=== PATIENT | female | born 1990 | race Caucasian/White ===

== ENCOUNTER 2016-07-22 19:30 | Emergency (ER) | payer OTHER ==
[2016-07-22 19:46] VITALS: BP 116/69; PULSE 101; RESP 20; TEMP 97.8
--- NOTE | 2016-07-22 20:08 | ED ---
Skin/Abscess/FB HPI - General Chief complaint: Skin/Abscess/Foreign Body Stated complaint: Arm Pain Time Seen by Provider: 07/22/16 20:07 Source: patient, family, RN notes reviewed, old records reviewed Mode of arrival: ambulatory Limitations: no limitations - History of Present Illness Initial comments: Patient is a 25 year old female that reports that she has an abscess over her left antecubital area after IVDU. Patient reports she was using the same needle multiple times to inject heroin. She states that she noticed the abscess start to form 2 weeks ago, and it has slowly progressed. She states she was embarrassed to be seen, but the pain is unbearable. She hasnt injected heroin in this area since then. She denies any other areas of abscess. Patient denies fever or chills, chest pain, headache or shortness of breath. She has never had an abscess before. - Related Data Previous Rx's Medication Instructions Recorded Acetaminophen-Codeine 300-30mg 1 tab PO Q4H PRN #12 tablet 07/22/16 [Tylenol #3] Sulfamethox-Tmp 800-160Mg [Bactrim 2 tab PO Q12HR 14 Days 07/22/16 DS 800-160 mg] Allergies Allergy/AdvReac Type Severity Reaction Status Date / Time No Known Allergies Allergy Verified 07/22/16 19:46 Review of Systems ROS Statement: Those systems with pertinent positive or pertinent negative responses have been documented in the HPI. ROS Other: All systems not noted in ROS Statement are negative. Past Medical History Past Medical History: No Reported History History of Any Multi-Drug Resistant Organisms: None Reported Past Surgical History: No Surgical Hx Reported Past Anesthesia/Blood Transfusion Reactions: No Reported Reaction Past Psychological History: No Psychological Hx Reported Smoking Status: Current every day smoker Past Alcohol Use History: None Reported Past Drug Use History: Heroin - Past Family History Mother Family Medical History: No Reported History General Exam - General Exam Comments Initial Comments: Well appearing 25 year old female, no acute distress. Limitations: no limitations General appearance: alert, in no apparent distress Head exam: Present: atraumatic, normocephalic, normal inspection Eye exam: Present: normal appearance, PERRL, EOMI. Absent: scleral icterus, conjunctival injection, periorbital swelling ENT exam: Present: normal exam, mucous membranes moist, TM's normal bilaterally Neck exam: Present: normal inspection. Absent: tenderness, meningismus, lymphadenopathy Respiratory exam: Present: normal lung sounds bilaterally. Absent: respiratory distress, wheezes, rales, rhonchi, stridor Cardiovascular Exam: Present: regular rate, normal rhythm, normal heart sounds. Absent: systolic murmur, diastolic murmur, rubs, gallop, clicks GI/Abdominal exam: Present: soft, normal bowel sounds. Absent: distended, tenderness, guarding, rebound, rigid Extremities exam: Present: full ROM, normal capillary refill. Absent: normal inspection, tenderness, pedal edema, joint swelling, calf tenderness Left Upper Arm exam: Present: normal inspection, full ROM Elbow exam: Present: swelling (swelling and erythema over antecubital fossa. abscess measures 5cm by 4cm.), erythema. Absent: normal inspection, full ROM ( patient has limited flexion due to pain. ), tenderness, abrasion, laceration, ecchymosis, deformity, effusion, pain w/ pronation/supination Forearm Wrist exam: Present: normal inspection, full ROM Hand Wrist exam: Present: normal inspection, full ROM Neuro motor exam: Present: wrist extension intact, thumb opposition intact, thumb IP flexion intact, thumb adduction intact, fingers 2-5 abduction intact Neurosensory exam: Present: 2-point discrimination, radial nerve intact, ulnar nerve intact, median nerve intact Vascular: Present: normal capillary refill Back exam: Present: normal inspection, full ROM. Absent: tenderness, CVA tenderness (R), CVA tenderness (L), muscle spasm, paraspinal tenderness Neurological exam: Present: alert, oriented X3, CN II-XII intact. Absent: altered, normal gait, abnormal gait Psychiatric exam: Present: normal affect, normal mood Skin exam: Present: warm, dry, intact, normal color. Absent: rash Course Vital Signs 07/22/16 19:42 Temperature 97.8 F Pulse Rate 101 H Respiratory 20 Rate Blood Pressure 116/69 O2 Sat by Pulse 98 Oximetry Procedures - Incision & Drainage Consent Obtained: verbal consent Indication: left antecubital abscess from IVdU Site: upper extremity (left antecubital fossa) Size (cm): 5 Anesthetic Used: benzocaine 0.25% Amount (mLs): 5 I&D Cleaning Method: Iodine Sterile Field Used?: Yes Scalpel Used: #11 Irrigation Performed?: No I&D Drainage Obtained: Pus, Blood Packing: Iodoform Culture Obtained?: Yes Complications: pain Patient Tolerated Procedure: well, no complications Medical Decision Making - Medical Decision Making Patient is a 25 year old female with abscess in left antecubital fossa after IVDU. She reports the pain was there for approximately 2 weeks. She denies any other symptoms including fever or chills. Abscess was incised, drained and culture obtained. Over 20 cc of fluid and pus drained. PAtient will be placed on Bactrim DS 2 tablets BID for 14 days. PAtient abscess also packed and advised to remove packing in 2 days. Patient advised to return if area increases or any other alarming signs occuring like fever, chills, or increased size of redness. Patient understands treatment plan and will comply. I advised patient to discontinue IVDU and patient reports that she plans too. Given size of abscess and the pain, patient given Rx for tylenol 3. Disposition Clinical Impression: Abscess of left arm Disposition: HOME SELF-CARE Condition: Good Instructions: Abscess Incision and Drainage (ED) Additional Instructions: Remove packing in 2 days. Avoid use of IV drugs. Complete entire antibiotic prescription. Return to the [facility] if symptoms continue persist. Prescriptions: Acetaminophen-Codeine 300-30mg [Tylenol #3] 1 tab PO Q4H PRN #12 tablet PRN Reason: Pain Sulfamethox-Tmp 800-160Mg [Bactrim DS 800-160 mg] 2 tab PO Q12HR 14 Days Referrals: Haley Still MD [REFERRING] - 1-2 days
[2016-07-22] MEDS ORDERED: SULFAMETH-TMP DS STARTER PACK 2 TAB BTL PO STA (20:31)
[2016-07-22] MEDS ORDERED: ACET/COD 300 MG/30 MG STARTER PACK 6 TAB BTL PO STA (20:32)
== END 2016-07-22 21:21 | disposition home or self-care (01) ==
LOC: EC 19:30
DX: L02.414 Cutaneous abscess of left upper limb (principal); F17.200 Nicotine dependence, unspecified, uncomplicated
CPT/HCPCS: 10060; 87070; 87077; 87186; 87205; 99283

== ENCOUNTER 2018-06-23 20:52 | Emergency (ER) | payer OTHER ==
[2018-06-23] MEDS ORDERED: SODIUM CHLORIDE 0.9% 1,000 ML IV STA ×3 (21:00)
[2018-06-23] MEDS ORDERED: SODIUM CHLORIDE 0.9% 500 ML 500 ML IV STA (21:00)
--- NOTE | 2018-06-23 21:18 | ED ---
Altered Mental Status HPI - General Stated Complaint: shortness of breath Time Seen by Provider: 06/23/18 20:59 Source: patient, family, RN notes reviewed, old records reviewed Mode of arrival: wheelchair Limitations: altered mental status, physical limitation - History of Present Illness Initial Comments: 25 female the ER for evaluation, persistent altered mental status. Patient brought in by EMS, boyfriend, patient has no history of methamphetamine abuse as well as heroin abuse. Patient has had nausea vomiting and diarrhea 3 days as well as fever, has not eaten in over a week. Patient herself is poor historian this time, and we'll give history secondary severe clinical condition MD Complaint: altered mental status, confusion, decreased responsiveness, intoxication, weakness -: week(s) Severity: severe Consistency of Symptoms: getting worse Context: alcohol abuse, drug abuse, recent fever Associated Symptoms: fever/chills, malaise, nausea/vomiting, shortness of breath , weakness, diarrhea - Related Data Home Medications Medication Instructions Recorded Confirmed oxyCODONE HCL 30 mg PO BID 06/23/18 06/23/18 Allergies Allergy/AdvReac Type Severity Reaction Status Date / Time No Known Allergies Allergy Verified 06/23/18 21:17 Review of Systems ROS Statement: Those systems with pertinent positive or pertinent negative responses have been documented in the HPI. ROS Other: All systems not noted in ROS Statement are negative. Past Medical History Past Medical History: No Reported History History of Any Multi-Drug Resistant Organisms: MRSA Date of last positivie culture/infection: 07/22/16 MDRO Source:: Left Arm Past Surgical History: No Surgical Hx Reported Past Anesthesia/Blood Transfusion Reactions: No Reported Reaction Past Psychological History: No Psychological Hx Reported Smoking Status: Current every day smoker Past Alcohol Use History: None Reported Past Drug Use History: Heroin - Past Family History Mother Family Medical History: No Reported History General Exam Limitations: altered mental status, physical limitation General appearance: alert, appears intoxicated, anxious, lethargic, in distress Head exam: Present: atraumatic, normocephalic, normal inspection Eye exam: Present: normal appearance, PERRL, EOMI. Absent: scleral icterus, conjunctival injection, periorbital swelling ENT exam: Present: mucous membranes dry Neck exam: Present: normal inspection. Absent: tenderness, meningismus, lymphadenopathy Respiratory exam: Present: respiratory distress, wheezes, rhonchi, accessory muscle use, decreased breath sounds, prolonged expiratory. Absent: rales, stridor Cardiovascular Exam: Present: normal rhythm, tachycardia, normal heart sounds. Absent: systolic murmur, diastolic murmur, rubs, gallop, clicks GI/Abdominal exam: Present: soft, normal bowel sounds. Absent: distended, tenderness, guarding, rebound, rigid Extremities exam: Present: normal inspection, full ROM, normal capillary refill. Absent: tenderness, pedal edema, joint swelling, calf tenderness Back exam: Present: normal inspection Neurological exam: Present: altered, CN II-XII intact Psychiatric exam: Present: agitated, anxious Skin exam: Present: warm, dry, diaphoretic, pallor. Absent: rash Course Vital Signs 06/23/18 06/23/18 06/23/18 21:15 21:49 22:20 Temperature 100.6 F H Pulse Rate 134 H 112 H Respiratory 32 H 32 H Rate Blood Pressure 89/41 78/30 O2 Sat by Pulse 93 L Oximetry 06/23/18 06/23/18 06/23/18 22:21 22:32 22:34 Temperature Pulse Rate 114 H 116 H 115 H Respiratory 32 H Rate Blood Pressure 81/43 O2 Sat by Pulse 100 Oximetry 06/23/18 06/23/18 06/23/18 22:54 23:12 23:29 Temperature 97.6 F Pulse Rate 115 H 112 H 112 H Respiratory 34 H 24 Rate Blood Pressure 100/40 99/44 O2 Sat by Pulse 100 100 Oximetry - Reevaluation(s) Reevaluation #1: 06/23/18 23:31 Medical records reviewed and noncontributory Reevaluation #2: 06/23/18 23:31 Patient's family is made aware of patient's severe clinical condition Medical Decision Making - Medical Decision Making 27 female the ER for evaluation of septic, severe dehydration, anemia receiving transfusion and sepsis on multiple different antibiotics currently. Patient given significant fluid resuscitation, patient decision made to transfer the [facility] for higher level of care - Lab Data Result diagrams: 06/23/18 21:20 06/23/18 21:20 Lab Results 06/23/18 06/23/18 06/23/18 Range/Units 21:20 21:20 21:20 WBC (3.8-10.6) k/uL RBC (3.80-5.40) m/uL Hgb (11.4-16.0) gm/dL Hct (34.0-46.0) % MCV (80.0-100.0) fL MCH (25.0-35.0) pg MCHC (31.0-37.0) g/dL RDW (11.5-15.5) % Plt Count (150-450) k/uL Neutrophils % (Manual) % Band Neutrophils % % Lymphocytes % (Manual) % Monocytes % (Manual) % Neutrophils # (Manual) (1.3-7.7) k/uL Lymphocytes # (Manual) (1.0-4.8) k/uL Monocytes # (Manual) (0-1.0) k/uL Nucleated RBCs (0-0) /100 WBC Manual Slide Review Toxic Granulation Polychromasia Hypochromasia Poikilocytosis (manual Anisocytosis Microcytosis PT (9.0-12.0) sec INR (<1.2) VBG pH 7.02 L* (7.31-7.41) VBG pCO2 36 L (37-51) mmHg VBG HCO3 9 L* (24-28) mmol/L Sodium 129 L (137-145) mmol/L Potassium 7.8 H* (3.5-5.1) mmol/L Chloride 84 L (98-107) mmol/L Carbon Dioxide 8 L* (22-30) mmol/L Anion Gap 37 mmol/L BUN 204 H* (7-17) mg/dL Creatinine 8.16 H* (0.52-1.04) mg/dL Est GFR (CKD-EPI)AfAm 7 (>60 ml/min/1.73 sqM) Est GFR (CKD-EPI)NonAf 6 (>60 ml/min/1.73 sqM) Glucose 164 H (74-99) mg/dL Plasma Lactic Acid Edward 14.1 H* (0.7-2.0) mmol/L Calcium 8.1 L (8.4-10.2) mg/dL Phosphorus 19.9 H* (2.5-4.5) mg/dL Magnesium 3.4 H (1.6-2.3) mg/dL Total Bilirubin 0.9 (0.2-1.3) mg/dL AST 98 H (14-36) U/L ALT 34 (9-52) U/L Alkaline Phosphatase 140 H (38-126) U/L Ammonia 57 H (<30) umol/L Total Creatine Kinase (30-135) U/L CK-MB (CK-2) (0.0-2.4) ng/mL CK-MB (CK-2) Rel Index Troponin I (0.000-0.034) ng/mL Total Protein 8.0 (6.3-8.2) g/dL Albumin 3.0 L (3.5-5.0) g/dL Lipase 658 H (23-300) U/L Serum Alcohol <10 mg/dL Blood Type Blood Type Recheck Antibody Screen Crossmatch Spec Expiration Date 06/23/18 06/23/18 06/23/18 Range/Units 21:20 21:20 21:20 WBC 24.9 H (3.8-10.6) k/uL RBC 2.43 L (3.80-5.40) m/uL Hgb 5.7 L* (11.4-16.0) gm/dL Hct 18.7 L* (34.0-46.0) % MCV 77.1 L (80.0-100.0) fL MCH 23.6 L (25.0-35.0) pg MCHC 30.6 L (31.0-37.0) g/dL RDW 17.9 H (11.5-15.5) % Plt Count 100 L (150-450) k/uL Neutrophils % (Manual) 71 % Band Neutrophils % 2 % Lymphocytes % (Manual) 25 % Monocytes % (Manual) 2 % Neutrophils # (Manual) 18.10 H (1.3-7.7) k/uL Lymphocytes # (Manual) 6.23 H (1.0-4.8) k/uL Monocytes # (Manual) 0.50 (0-1.0) k/uL Nucleated RBCs 0 (0-0) /100 WBC Manual Slide Review Performed Toxic Granulation Present Polychromasia Present Hypochromasia Marked Poikilocytosis (manual Present Anisocytosis Slight Microcytosis Slight PT 13.7 H (9.0-12.0) sec INR 1.3 H (<1.2) VBG pH (7.31-7.41) VBG pCO2 (37-51) mmHg VBG HCO3 (24-28) mmol/L Sodium (137-145) mmol/L Potassium (3.5-5.1) mmol/L Chloride (98-107) mmol/L Carbon Dioxide (22-30) mmol/L Anion Gap mmol/L BUN (7-17) mg/dL Creatinine (0.52-1.04) mg/dL Est GFR (CKD-EPI)AfAm (>60 ml/min/1.73 sqM) Est GFR (CKD-EPI)NonAf (>60 ml/min/1.73 sqM) Glucose (74-99) mg/dL Plasma Lactic Acid Edward (0.7-2.0) mmol/L Calcium (8.4-10.2) mg/dL Phosphorus (2.5-4.5) mg/dL Magnesium (1.6-2.3) mg/dL Total Bilirubin (0.2-1.3) mg/dL AST (14-36) U/L ALT (9-52) U/L Alkaline Phosphatase (38-126) U/L Ammonia (<30) umol/L Total Creatine Kinase 78 (30-135) U/L CK-MB (CK-2) 1.7 (0.0-2.4) ng/mL CK-MB (CK-2) Rel Index 2.2 Troponin I 0.020 (0.000-0.034) ng/mL Total Protein (6.3-8.2) g/dL Albumin (3.5-5.0) g/dL Lipase (23-300) U/L Serum Alcohol mg/dL Blood Type Blood Type Recheck Antibody Screen Crossmatch Spec Expiration Date 06/23/18 Range/Units 22:03 WBC (3.8-10.6) k/uL RBC (3.80-5.40) m/uL Hgb (11.4-16.0) gm/dL Hct (34.0-46.0) % MCV (80.0-100.0) fL MCH (25.0-35.0) pg MCHC (31.0-37.0) g/dL RDW (11.5-15.5) % Plt Count (150-450) k/uL Neutrophils % (Manual) % Band Neutrophils % % Lymphocytes % (Manual) % Monocytes % (Manual) % Neutrophils # (Manual) (1.3-7.7) k/uL Lymphocytes # (Manual) (1.0-4.8) k/uL Monocytes # (Manual) (0-1.0) k/uL Nucleated RBCs (0-0) /100 WBC Manual Slide Review Toxic Granulation Polychromasia Hypochromasia Poikilocytosis (manual Anisocytosis Microcytosis PT (9.0-12.0) sec INR (<1.2) VBG pH (7.31-7.41) VBG pCO2 (37-51) mmHg VBG HCO3 (24-28) mmol/L Sodium (137-145) mmol/L Potassium (3.5-5.1) mmol/L Chloride (98-107) mmol/L Carbon Dioxide (22-30) mmol/L Anion Gap mmol/L BUN (7-17) mg/dL Creatinine (0.52-1.04) mg/dL Est GFR (CKD-EPI)AfAm (>60 ml/min/1.73 sqM) Est GFR (CKD-EPI)NonAf (>60 ml/min/1.73 sqM) Glucose (74-99) mg/dL Plasma Lactic Acid Edward (0.7-2.0) mmol/L Calcium (8.4-10.2) mg/dL Phosphorus (2.5-4.5) mg/dL Magnesium (1.6-2.3) mg/dL Total Bilirubin (0.2-1.3) mg/dL AST (14-36) U/L ALT (9-52) U/L Alkaline Phosphatase (38-126) U/L Ammonia (<30) umol/L Total Creatine Kinase (30-135) U/L CK-MB (CK-2) (0.0-2.4) ng/mL CK-MB (CK-2) Rel Index Troponin I (0.000-0.034) ng/mL Total Protein (6.3-8.2) g/dL Albumin (3.5-5.0) g/dL Lipase (23-300) U/L Serum Alcohol mg/dL Blood Type O Positive Blood Type Recheck No Antibody Screen NEGATIVE Crossmatch See Detail Spec Expiration Date 06/26/2018 - 7144 - EKG Data -: EKG Interpreted by Me (EKG shows tachycardia rate of 132, QRS 136, QTC 539 artifact) - Radiology Data Radiology results: report reviewed (X-ray abdominal series which show significant pulmonary infiltrate), image reviewed Critical Care Time Critical Care Time: Yes (95) Disposition Clinical Impression: Acute pulmonary edema, Fever, Sepsis, Drug abuse, Nausea & vomiting, Diarrhea, Community acquired pneumonia, Acute renal failure, Anemia, Hyperkalemia, Metabolic acidosis, Hyperammonemia, Lactic acidosis, Uremia, Altered mental status Narrative: Multiple Electrolyte Abnormalities Disposition: OTHER INSTITUTION NOT DEFINED Condition: Critical Is patient prescribed a controlled substance at d/c from ED?: No Referrals: None,Stated [Primary Care Provider] - 1-2 days - Out of Hospital Transfer - Req. Specs Out of Hospital Transfer - Requested Specifics: Medical ICU ([facility])
[2018-06-23 21:41] LABS: Anisocytosis Slight; Hypochromasia Marked; MCH 23.6 pg (25.0-35.0); MCHC 30.6 g/dL (31.0-37.0); MCV 77.1 fL (80.0-100.0); Mean Platelet Volume 10.8; Microcytosis Slight; Platelet Count 100 k/uL (150-450); RBC 2.43 m/uL (3.80-5.40); RDW 17.9 % (11.5-15.5); WBC 24.9 k/uL (3.8-10.6)
[2018-06-23 21:48] LABS: HCT 18.7 % (34.0-46.0); HGB 5.7 gm/dL (11.4-16.0); VBG PH 7.02 (7.31-7.41)
[2018-06-23 21:49] LABS: INR 1.3 (<1.2); Prothrombin Time 13.7 sec (9.0-12.0)
[2018-06-23 21:51] LABS: ALT 34 U/L (9-52); AST 98 U/L (14-36); Alcohol <10 mg/dL; Alkaline Phosphatase 140 U/L (38-126); Anion Gap 37 mmol/L; Calcium 8.1 mg/dL (8.4-10.2); Chloride 84 mmol/L (98-107); Glucose 164 mg/dL (74-99); Lipase 658 U/L (23-300); Magnesium 3.4 mg/dL (1.6-2.3); Sodium 129 mmol/L (137-145); Total Bilirubin 0.9 mg/dL (0.2-1.3)
[2018-06-23 21:58] LABS: Band Neutrophils % 2 %; Lymphocytes # (M) 6.23 k/uL (1.0-4.8); Neutrophils % (M) 71 %; Nucleated Red Blood Cells 0 /100 WBC (0-0); Total Cells Counted 100
[2018-06-23] MEDS ORDERED: AMPICILLIN-SULBACTAM 3 GM in SODIUM CHLORIDE 0.9% 100 ML IVPB STA (21:58)
[2018-06-23 22:00] LABS: Poikilocytosis (M) Present; Polychromasia Present; Toxic Granulation Present
[2018-06-23] MEDS ORDERED: ONDANSETRON 4 MG/2 ML VIAL IVP STA (22:02)
[2018-06-23 22:06] LABS: Blood Urea Nitrogen 204 mg/dL (7-17); Carbon Dioxide 8 mmol/L (22-30); Creatine Kinase MB 1.7 ng/mL (0.0-2.4); Phosphorus 19.9 mg/dL (2.5-4.5); Potassium 7.8 mmol/L (3.5-5.1); Troponin I 0.02 ng/mL (0.000-0.034)
[2018-06-23 22:08] LABS: Lactic Acid, Venous 14.1 mmol/L (0.7-2.0)
[2018-06-23] MEDS ORDERED: LORazepam 2 MG/ML INJ IV STA (22:09)
[2018-06-23] MEDS ORDERED: SODIUM BICARB 8.4% 50 ML SYR (1 MEQ/ML) IV ONE (22:10)
[2018-06-23] MEDS ORDERED: DEXTROSE 50%-WATER 50 ML SYRINGE IVP STA (22:10)
[2018-06-23] MEDS ORDERED: CALCIUM GLUCONATE 1,000 MG in SODIUM CHLORIDE 0.9% 100 ML IVPB ONE (22:10)
[2018-06-23] MEDS ORDERED: INSULIN REGULAR 100 UNIT/ML VIAL IV ONE (22:10)
[2018-06-23] MEDS ORDERED: ALBUTEROL NEBULIZED 2.5 MG/3 ML INHALATION STA (22:11)
[2018-06-23] MEDS ORDERED: ACETAMINOPHEN IV (For NPO) 1,000 MG in EMPTY BAG 1 BAG IVPB STA (22:34)
--- NOTE | 2018-06-23 23:02 | XR ---
EXAMINATION TYPE: XR abdomen acute w cxr DATE OF EXAM: 06/23/2018 COMPARISON: NONE HISTORY: Short of breath TECHNIQUE: Chest x-ray with supine and upright abdomen FINDINGS: There is patchy bilateral pulmonary infiltrates. Heart size is normal. There is no pleural effusion. There is no sign of intestinal obstruction or pneumoperitoneum. There is apparent bladder catheter. T here are no pathologic calcifications over the kidneys. There is a relative lack of small bowel gas. IMPRESSION: Patchy bilateral pulmonary infiltrates. This could relate to pneumonia or RDS. Nonacute abdomen. No free air.
[2018-06-23] MEDS ORDERED: LEVOFLOXACIN 750MG-D5W PMX 750 MG in DEXTROSE/WATER 1 150ML.BAG IVPB STA (23:07)
[2018-06-23] MEDS ORDERED: VANCOMYCIN IV PER PHARMACY 1 EACH MISC MISCELLANE PRN (23:24)
[2018-06-23] MEDS ORDERED: PIPERACILLIN-TAZOBACTAM 3.375 GM in SODIUM CHLORIDE 0.9% 100 ML IVPB STA (23:27)
[2018-06-23] MEDS ORDERED: VANCOMYCIN 750 MG in SODIUM CHLORIDE 0.9% 250 ML IVPB STA (23:28)
[2018-06-24] MEDS ORDERED: PIPERACILLIN-TAZOBACTAM 3.375 GM in SODIUM CHLORIDE 0.9% 100 ML IVPB SCH ×2
[2018-06-24 00:10] LABS: Appearance,Urine Turbid (Clear); Bilirubin,Urine Negative (Negative); Blood,Urine Large (Negative); Color,Urine Light Red; Glucose,Urine (UA) Negative (Negative); Ketones,Urine Negative (Negative); Leukocyte Esterase,Urine Large (Negative); Mucus,Urine Rare /hpf; Nitrite,Urine Negative (Negative); Protein,Urine 3+ (Negative); RBC,Urine 128 /hpf (0-5); Specific Gravity,Urine 1.016 (1.001-1.035); Urobilinogen,Urine <2.0 mg/dL (<2.0)
[2018-06-24 00:12] VITALS: TEMP 97.6
[2018-06-24 00:21] LABS: Amphetamine Screen,Urine Detected (NotDetected); Barbiturate Screen,Urine Not Detected (NotDetected); Benzodiazepines Screen,Urine Not Detected (NotDetected); Cocaine Screen,Urine Not Detected (NotDetected); Methadone Screen, Urine Not Detected (NotDetected); Opiate Screen,Urine Detected (NotDetected); Oxycodone Screen, Urine Not Detected (NotDetected); Phencyclidine Screen,Urine Not Detected (NotDetected); Tricyclic Antidepressant,Urine Not Detected (NotDetected); Urn Cannabinoid Scrn Not Detected (NotDetected)
[2018-06-24 02:01] VITALS: RESP 32
[2018-06-24 02:02] VITALS: BP 107/58; PULSE 102
== END 2018-06-24 02:12 | disposition other institution (70) ==
LOC: EC 20:52
DX: A41.9 Sepsis, unspecified organism (principal); J18.9 Pneumonia, unspecified organism; N17.9 Acute kidney failure, unspecified; D64.9 Anemia, unspecified; E87.5 Hyperkalemia; E87.2 Acidosis; E72.20 Disorder of urea cycle metabolism, unspecified; J81.0 Acute pulmonary edema; F19.10 Other psychoactive substance abuse, uncomplicated; R41.82 Altered mental status, unspecified; R11.2 Nausea with vomiting, unspecified; R19.7 Diarrhea, unspecified; F10.129 Alcohol abuse with intoxication, unspecified; F17.200 Nicotine dependence, unspecified, uncomplicated; Z86.14 Personal history of Methicillin resistant Staphylococcus aureus infection; Z79.899 Other long term (current) drug therapy
CPT/HCPCS: 99291; 99292; 96365 ×2; 96367; 96366; 96368; 96375 ×3; 96361 ×3; 36415; 94644; 86900; 86901; 80053; 82140; 82550; 82553; 82803; 83605; 83690; 83735; 84100; 84484; 85025; 85610; 86850; 86920; 81001; 87040; 80306; 87086; 87077; 87186; 74022; 51702; P9016 ×2; G0480; J3370; J2405; J0295; J0610; J0131; 80320